=== PATIENT | female | born 1950 | race Caucasian/White ===

== ENCOUNTER 2019-09-04 10:22 | Emergency (ER) | payer MEDICARE, OTHER ==
[~2019-09-04] VITALS: Ht 175.3 cm; Wt 81.6 kg
[2019-09-04 10:26] VITALS: BP 147/87
[2019-09-04] MEDS ORDERED: KETOROLAC 30 MG/ML VIAL IM ONE (10:55)
[2019-09-04] MEDS ORDERED: BACITRACIN OINT 500 UNITS/GM PKT TP ONE (11:15)
[2019-09-04 11:35] VITALS: BP 147/87
== END 2019-09-04 11:36 | disposition home or self-care (01) ==
LOC: MED 10:22
DX: L03.90 Cellulitis, unspecified (principal); R60.9 Edema, unspecified; Z48.00 Encounter for change or removal of nonsurgical wound dressing; Z88.4 Allergy status to anesthetic agent; Z88.5 Allergy status to narcotic agent; Z88.6 Allergy status to analgesic agent; Z86.011 Personal history of benign neoplasm of the brain
CPT/HCPCS: 96372; 99283; J1885